=== PATIENT | female | born 1990 | race Caucasian/White ===

== ENCOUNTER 2017-05-17 08:30 | Emergency (ER) | payer SELFPAY ==
[~2017-05-17] VITALS: Ht 154.9 cm; Wt 60.0 kg
[2017-05-17 08:37] VITALS: BP 114/80; PULSE 108; RESP 20; TEMP 99.2; O2SAT 100
[2017-05-17] MEDS ORDERED: SODIUM CHLOR 0.9% 1000 ML INJ 1,000 ML IV ONE (09:15)
[2017-05-17] MEDS ORDERED: KETOROLAC TROMETHAMINE 30 MG/ML (IVP) VIAL IV PUSH ONE (09:15)
[2017-05-17] MEDS ORDERED: ONDANSETRON HCL 4 MG/2 ML VIAL IV PUSH ONE (09:15)
[2017-05-17] MEDS ORDERED: DEXAMETHASONE SOD PHOS 4 MG/ML VIAL IV PUSH ONE (09:15)
--- NOTE | 2017-05-17 09:21 | PD ---
HPI Chief Complaint: Cold / Flu Symptoms Time Seen by Provider: 09:05 Travel History International Travel<30 days: No Contact w/Intl Traveler<30days: No Traveled to known affect area: No History of Present Illness HPI The patient is a 27-year-old female who presents to the emergency department for 1 day of cough and cold symptoms. The patient states 3 weeks ago she lost her voice for approximately 1 week, her voice then returned. The patient states she developed a sore throat last night with some scratching and itching, mostly on the right side. She then had some postnasal drip resulting in some nausea and vomiting. She also notes an episode of hematemesis after vomiting. She denies any abdominal pain. She does note subjective fever, but states her temperature was only 99.2 in the emergency department. She did take TheraFlu last night. She does note minimal nasal congestion secondary to crying but denies any cough. She denies any significant myalgias or arthralgias. Symptoms are moderate without any alleviating or exacerbating factors. [facility] Past Medical History Medical History: Denies Significant Hx ?: Not Past Surgical History Narrative Surgical section 2, tubal ligation Social History Tobacco Use: No Allergies-Medications (Allergen,Severity, Reaction): Coded Allergies: No Known Allergies (Unverified , 05/17/17) Review of Systems Except as stated in HPI: all other systems reviewed are Neg General / Constitutional: Positive: Fever HENT: Positive: Sore Throat, Congestion Respiratory: No: Cough, Hemoptysis Gastrointestinal: Positive: Nausea, Vomiting, Hematemesis, No: Diarrhea, Abdominal Pain Musculoskeletal: No: Myalgias, Arthralgias Physical Exam Narrative GENERAL: Awake, alert, nontoxic-appearing 27-year-old female who appears her stated age and is in no acute respiratory distress. SKIN: Focused skin assessment warm/dry. HEAD: Atraumatic. Normocephalic. EYES: Pupils equal and round. No scleral icterus. No injection or drainage. ENT: No nasal bleeding or discharge. Oropharynx reveals erythema with mild edema on the right posterior pillars. NECK: Trachea midline. No JVD. No significant cervical lymphadenopathy. CARDIOVASCULAR: Regular, tachycardic with heart rate 105. RESPIRATORY: No accessory muscle use. Clear to auscultation. Breath sounds equal bilaterally. GASTROINTESTINAL: Abdomen soft, non-tender, nondistended. No rebound tenderness. MUSCULOSKELETAL: No obvious deformities. No clubbing. No cyanosis. No edema. NEUROLOGICAL: Awake and alert. No obvious cranial nerve deficits. Motor grossly within normal limits. Normal speech. PSYCHIATRIC: Appropriate mood and affect; insight and judgment normal. Data Data Last Documented VS Vital Signs Date Time Temp Pulse Resp B/P (MAP) Pulse Ox O2 Delivery O2 Flow Rate FiO2 05/17/17 08:37 99.2 108 20 114/80 (91) 100 Orders Orders Influenzae A/B Antigen (05/17/17 09:15) Group A Rapid Strep Screen (05/17/17 09:15) Dexamethasone Inj (Decadron Inj) (05/17/17 09:15) Ketorolac Inj (Toradol Inj) (05/17/17 09:15) Sodium Chlor 0.9% 1000 Ml Inj (Ns 1000 M (05/17/17 09:15) Ondansetron Inj (Zofran Inj) (05/17/17 09:15) Iv Access Insert/Monitor (05/17/17 09:44) [facility] Medical Decision Making Medical Screen Exam Complete: Yes Emergency Medical Condition: Yes Medical Record Reviewed: Yes Interpretation(s) Date/Time Source Procedure Growth Status 05/17/17 09:40 Nasal Aspirate Influenza Types A,B Antigen ([place]) - Final NEGATIVE FOR FLU A AND B ANTIGEN.... Complete 05/17/17 09:40 Throat Group A Streptococcus Screen ([place]) - Final Pos For Grp A Strep Antigen Complete Differential Diagnosis Differential diagnosis includes viral pharyngitis, strep pharyngitis, mononucleosis, laryngitis, viral syndrome, gastritis, influenza. Narrative Course Strep screen and influenza screen were sent to lab. IV was established and the patient was administered Decadron, Toradol, Zofran, and 1 L of normal saline. The patient's influenza screen is negative. Strep screen is positive for strep a. I had a discussion with the patient regarding Bicillin L-A versus Pen-Vee K oral, patient would prefer the oral route. She will also be placed on prednisone for 4 days for the laryngitis and inflammation. She is advised to take Tylenol as needed for pain and fever. Plenty of fluids to stay hydrated. Work excuse for 2 days. Diagnosis Primary Impression: Strep pharyngitis Additional Impression: Laryngitis Patient Instructions: General Instructions Additional Instructions: Medications as directed. Plenty fluids to stay hydrated. Tylenol as needed for pain and fever. Work excuse for 2 days. Return if symptoms worsen or progress. Med/Other Pt SpecificInfo: Prescription(s) given Scripts Prednisone (Prednisone) 20 Mg Tab 40 MG PO DAILY for 4 Days, #8 TAB 0 Refills Take 40 mg (2 tablets) daily for 5 days Prov: Checo Winters MD 05/17/17 Penicillin V Potassium (Penicillin V Potassium) 500 Mg Tab 500 MG PO Q6H for Infection for 10 Days, #40 TAB 0 Refills Prov: Checo Winters MD 05/17/17 Disposition: 01 DISCHARGE HOME Condition: Stable Checo Winters MD May 17, 2017 09:21
[2017-05-17] MEDS ORDERED: PRED20 PO (10:51)
[2017-05-17] MEDS ORDERED: PENI500T PO (10:51)
== END 2017-05-17 12:00 | disposition home or self-care (01) ==
LOC: NEPD 08:30
DX: J02.0 Streptococcal pharyngitis (principal); J04.0 Acute laryngitis
CPT/HCPCS: 87804; 87880; 96374; 96375; 99284; J1100; J1885; J2405; J7030